=== PATIENT | male | born 1950 | race Caucasian/White ===

== ENCOUNTER 2016-09-26 11:02 | Emergency (ER) | payer OTHER ==
[~2016-09-26] VITALS: Ht 182.9 cm; Wt 136.1 kg
--- NOTE | 2016-09-26 11:38 | ED NECK/BACK PAIN COMPLAINT ---
History of Present Illness General Chief Complaint: Low Back Pain/Injury Stated Complaint: LBP Source: patient, old records Exam Limitations: no limitations Vital Signs & Intake/Output Vital Signs & Intake/Output Vital Signs Date Time Temp Pulse Resp B/P Pulse O2 O2 Flow FiO2 Ox Delivery Rate 09/26 1321 95.2 51 14 120/66 97 Room Air 09/26 1237 Room Air Room Air 09/26 1109 98.3 84 18 124/74 100 Room Air Allergies Coded Allergies: MDX - Terazosin (Terazosin) (UNKNOWN 08/24/12) Reconcile Medications Aspirin (Ecotrin*) 81 MG TABLET.DR 1 TAB PO DAILY HEART HEALTH (Reported) Bupropion HCl 100 MG TABLET (Unknown Dose) PO BID UNK (Reported) Cyclobenzaprine HCl 10 MG TABLET 1 TAB PO TID PRN BACK SPASM Hydromorphone HCl (Dilaudid) 2 MG TABLET 1-2 TAB PO 4XDP PRN PAIN Magnesium Oxide (Magnesium) 400 MG CAPSULE (Unknown Dose) PO SUPPLEMENT ( Reported) Methylprednisolone. (Medrol) 4 MG TAB.DS.PK 1 DP PO AD SCIATICA 6 on day 1 then reduce by one tablet daily until gone Naproxen (Naprosyn) 500 MG TABLET (Unknown Dose) PO BID PAIN (Reported) Pregabalin (Lyrica) 75 MG CAPSULE 1 CAP PO BID PAIN (Reported) Simvastatin (Simvastatin*) 10 MG TABLET (Unknown Dose) UNK (Reported) Triage Note: PT TO ED FOR L SIDED BACK PAIN RADIATING INTO L BUTT CHEEK. TRAMADOL AT HOME WITH NO RELIEF. Triage Nurses Notes Reviewed? yes HPI: PATIENT HERE WITH COMPLAINTS OF SEVERE LOW BACK PAIN FOR LAST 2 DAYS. sTARTED YESTERDAY WHILE HE WAS DRIVING. rADIATES DOWN TO HIS LEFT BUTTOCKS AND DOWN TO HIS LEFT FOOT. It is constant but varying in intensity, currently moderate to severe. Sharp shooting. He has a history of chronic back pain, intermittent pain mostly. He had a laminectomy and discectomy of his lower lumbar spine in 1995 and has had intermittent symptoms since then. His doctor did some tramadol for the pain however he is taking it without relief. He denies any bowel or bladder incontinence. No numbness no weakness. (MARGOT BARRERA) Past History Travel History Traveled to [place] past 21 day No Medical History Any Pertinent Medical History? see below for history Neurological: NONE EENT: NONE Cardiovascular: HIGH CHOLESTEROL Respiratory: NONE Gastrointestinal: NONE Hepatic: HEP C Renal: NONE Musculoskeletal: CHRONIC BACK PAIN Psychiatric: NONE Endocrine: NONE Blood Disorders: NONE Cancer(s): NONE Pneumonia Vaccine: 07/17/08 Influenza Vaccine: 04/03/08 Surgical History Surgical History: laminectomy, discectomy Psychosocial History Who do you live with Spouse What is your primary language [place] Tobacco Use: Quit <30 days ago ETOH Use: denies use Illicit Drug Use: denies illicit drug use Family History Hx Contributory? No (MARGOT BARRERA) Review of Systems Review of Systems Constitutional: Reports: see HPI. Eyes: Reports: no symptoms. Ears, Nose, Throat, Mouth: Reports: no symptoms. Respiratory: Reports: no symptoms. Cardiovascular: Reports: no symptoms. Gastrointestinal/Abdominal: Reports: no symptoms. Musculoskeletal: Reports: see HPI. Skin: Reports: no symptoms. Neurological/Psychological: Reports: no symptoms. All Other Systems: Reviewed and Negative (MARGOT BARRERA) Physical Exam Physical Exam Neck: normal inspection, supple, full range of motion Comments: Well-developed well-nourished no apparent distress. HEENT: Atraumatic, extraocular motion intact Neck: Supple, no lymphadenopathy Back: Tenderness to the paravertebral musculature on the left side lower lumbar region with mild spasming noted. No midline tenderness. No deformity or signs of trauma. There is no rashes present. Range of motion is limited secondary to pain Straight leg raise is negative bilaterally. Bilateral lower extremities are neurovascularly intact with sensation and motor grossly intact. Gait is antalgic. Respiratory: No respiratory distress Abdomen: Obese, Soft nontender nondistended Extremities: 1+ pitting bilateral lower extremity edema, full range of motion Neuro: Alert and oriented x3 Psych: Mood affect normal, normal memory normal judgment. Skin: Warm and dry, no rash on exposed skin (MARGOT BARRERA) Progress Differential Diagnosis: AAA, aortic dissection, C spine injury, carotid dissection, cauda equina syn, herniated disc, myofascial strain, pyelo/UTI, sciatica, spinal cord inj, thoracic outlet syn, T/L spine injury, ureterolithiasis Plan of Care: Orders Procedure Date/time Status XRY-LUMBOSACRAL SPINE AP & LAT 09/26 1135 Active Current Medications Sig/Dane Start time Last Medication Dose Stop Time Status Admin Oxycodone/ 1 TAB ONCE ONE 09/26 1145 UNVr Acetaminophen 09/26 1146 (Percocet) Diagnostic Imaging: Viewed by Me: Radiology Read. Discussed w/RAD: Radiology Read. Radiology Impression: PATIENT: MICHELLE MOONEY PRESENT AGE: 65 PATIENT ACCOUNT NO: [id number] : 51 LOCATION: [facility] ORDERING PHYSICIAN: MARGOT ALONZO SERVICE DATE: 09/26/16 EXAM TYPE: RAD - XRY-LUMBOSACRAL SPINE AP & LAT EXAMINATION: XR LUMBOSACRAL SPINE CLINICAL INFORMATION: Low back and left leg pain COMPARISON: None TECHNIQUE: 1 frontal and 3 lateral views of the lumbosacral spine obtained FINDINGS: Bones are in normal anatomic alignment with no acute fracture or spondylolisthesis. Vertebral body heights are preserved. Sclerotic degenerative changes seen in the posterior elements the lower lumbar spine. Likely transitional vertebra at the lumbosacral junction. Loss of disc height at L5/S1 suggested. Prominent vascular calcification seen in the partially visualized normal caliber abdominal aorta. IMPRESSION: Multilevel degenerative changes but no acute fracture or spondylolisthesis. DICTATED BY: MARGOT BOYD MD DATE/TIME DICTATED: / 1212 HEAD LOADER:LISETH Comments: Percocet did not significantly alleviate his symptoms. His x-ray shows degenerative disc disease and arthritis as expected. We'll place him on Dilaudid tablets Medrol Dosepak for sciatica and muscle relaxers and [facility] (MARGOT BARRERA) Departure Departure Disposition: HOME OR SELF CARE Condition: Stable Clinical Impression Primary Impression: Lumbago with sciatica, left side Qualifiers: Chronicity: acute Back pain laterality: left Qualified Code: M54.42 - Lumbago with sciatica, left side Referrals: UNKNOWN (PCP) Additional Instructions: Take medications for pain, spasm and inflammation as needed. Rest, warm compresses, gentle stretching. Follow-up with [facility]opedist or [facility] if no better in the next 5- 7 days. Watch for worsening symptoms of pain, numbness or weakness down the leg, return with any concerns. If you need x-ray copies, you may call the medical records [phone] extension [phone] Tuesday through Tuesday Departure Forms: Customer Survey General Discharge Information Prescriptions: Current Visit Scripts Methylprednisolone. (Medrol) 1 DP PO AD #1 DP 6 on day 1 then reduce by one tablet daily until gone Cyclobenzaprine HCl 1 TAB PO TID PRN BACK SPASM #30 TAB Hydromorphone HCl (Dilaudid) 1-2 TAB PO 4XDP PRN PAIN #12 TAB (ALEXANDRE ALONZO,MARGOT) PA/PEST CONTROL SUPERVISOR Co-Sign Statement Statement: ED Attending supervision documentation- [X] I saw and evaluated the patient. I have also reviewed all the pertinent lab results and diagnostic results. I agree with the findings and the plan of care as documented in the PA's/PEST CONTROL SUPERVISOR's documentation. [X] I have reviewed the ED Record and agree with the PA's/PEST CONTROL SUPERVISOR's documentation. [] Additions or exceptions (if any) to the PAs/PEST CONTROL SUPERVISOR's note and plan are summarized below: [] (HEIDI BHAT,CHAU Horton)
--- NOTE | 2016-09-26 12:18 | RADIOLOGY REPORT ---
EXAMINATION: XR LUMBOSACRAL SPINE CLINICAL INFORMATION: Low back and left leg pain COMPARISON: None TECHNIQUE: 1 frontal and 3 lateral views of the lumbosacral spine obtained FINDINGS: Bones are in normal anatomic alignment with no acute fracture or spondylolisthesis. Vertebral body heights are preserved. Sclerotic degenerative changes seen in the posterior elements the lower lumbar spine. Likely transitional vertebra at the lumbosacral junction. Loss of disc height at L5/S1 suggested. Prominent vascular calcification seen in the partially visualized normal caliber abdominal aorta. IMPRESSION: Multilevel degenerative changes but no acute fracture or spondylolisthesis.
[2016-09-26] MEDS ORDERED: LYRICA75 M1 PO (12:34)
[2016-09-26] MEDS ORDERED: SIMVASTATIN10 M1 (12:35)
[2016-09-26] MEDS ORDERED: ASPIRIN EC81 M1 PO (12:36)
[2016-09-26] MEDS ORDERED: MAGNESIUM400 M1 PO (12:36)
[2016-09-26] MEDS ORDERED: NAPROSYN500 M1 PO (12:37)
[2016-09-26] MEDS ORDERED: BUPROPION HCL100 M2 PO (12:37)
[2016-09-26] MEDS ORDERED: MEDROL4 M2 PO (12:40)
[2016-09-26] MEDS ORDERED: DILAUDID2 M1 PO (12:40)
[2016-09-26] MEDS ORDERED: CYCLOBENZAPRINE10 M1 PO (12:40)
[2016-09-26 13:21] VITALS: BP 120/66
== END 2016-09-26 13:43 ==
LOC: ERH 11:02
DX: M54.42 Lumbago with sciatica, left side (principal)
CPT/HCPCS: 72100